=== PATIENT | male | born 1995 | race Caucasian/White ===

== ENCOUNTER 2018-04-15 00:57 | Emergency (ER) | payer MEDICAID, OTHER ==
[~2018-04-15] VITALS: Ht 175.3 cm; Wt 106.8 kg
[2018-04-15] MEDS ORDERED: MUCI600T31 PO (01:05)
[2018-04-15] MEDS ORDERED: ACETAMINOPHEN 325 MG TAB As Ordered ONE (01:14)
[2018-04-15] MEDS ORDERED: ACETAMINOPHEN 325 MG TAB PO ONE (01:30)
[2018-04-15] MEDS ORDERED: NS 1,000 ML IV ONE (01:45)
[2018-04-15 01:50] LABS: INFLUENZA A AMPLIFICATION NEGATIVE (NEGATIVE); INFLUENZA B AMPLIFICATION NEGATIVE (NEGATIVE)
[2018-04-15] MEDS ORDERED: ALBUTEROL SULFATE 2.5 MG/0.5 ML INH NEB SOLN NEB ONE (02:00)
[2018-04-15] MEDS ORDERED: METOCLOPRAMIDE 10 MG TAB PO ONE (02:00)
[2018-04-15] MEDS ORDERED: PROAAER10 INH (02:08)
[2018-04-15 02:39] VITALS: BP 124/78
--- NOTE | 2018-04-15 07:47 | REP ---
Clinical: Cough and fever . Comparison: 02/06/2007 . Technique: PA and lateral. Findings: The mediastinum and cardiac silhouette are normal. The lung thompson are clear and without acute consolidation, effusion, or pneumothorax. The skeletal structures are intact and normal. Impression: 1. No acute cardiopulmonary process. Electronically Signed by Jasmeet Pate MD 04/15/2018 07:38 A
== END 2018-04-15 02:41 | disposition home or self-care (01) ==
LOC: M ED 00:57
DX: B34.9 Viral infection, unspecified (principal); R50.9 Fever, unspecified; J45.909 Unspecified asthma, uncomplicated

== ENCOUNTER 2018-04-25 22:09 | Emergency (ER) | payer OTHER ==
[~2018-04-25] VITALS: Ht 172.7 cm; Wt 108.2 kg
[~2018-04-25 22:09] MED LIST: MUCI600T31 PO; PROAAER10 INH
[2018-04-25] MEDS ORDERED: ONDANSETRON 4MG/2ML VIAL (J2405) IV ONE (23:00)
[2018-04-25] MEDS ORDERED: KETOROLAC 30 MG/ML VIAL (J1885) IV ONE (23:00)
[2018-04-25] MEDS ORDERED: NS 500 ML IV ONE (23:00)
--- NOTE | 2018-04-25 23:55 | REPVR ---
EXAM: CT Abdomen and Pelvis Without Contrast EXAM DATE/TIME: 04/25/2018 10:51 PM CLINICAL HISTORY: 23 years old, male; Pain; Abdominal pain; Flank; Right; Additional info: Right flank pain TECHNIQUE: Axial computed tomography images of the abdomen and pelvis without contrast. All CT scans at this facility use at least one of these dose optimization techniques: automated exposure control; mA and/or kV adjustment per patient size (includes targeted exams where dose is matched to clinical indication); or iterative reconstruction. Coronal and sagittal reformatted images were created and reviewed. COMPARISON: No relevant prior studies available. FINDINGS: Lower thorax: Unremarkable. ABDOMEN: Liver: Unremarkable. Gallbladder and bile ducts: No radiodense gallstones. No biliary ductal dilatation. Pancreas: Unremarkable. Spleen: Unremarkable. Adrenals: Unremarkable. Kidneys and ureters: Mild right-sided hydroureteronephrosis and perinephric/periureteral stranding, secondary to a 2 mm right UVJ calculus (axial image 139 and coronal image 62). Nonobstructing bilateral renal calculi. Stomach and bowel: No bowel wall thickening. No obstruction. No pneumatosis. Appendix: Normal. PELVIS: Bladder: Unremarkable. Reproductive: Unremarkable. ABDOMEN and PELVIS: Intraperitoneal space: No free fluid. No organized fluid collection. No free air. Bones/joints: No acute osseous abnormality. Soft tissues: Small, fat-containing umbilical hernia. Vasculature: Unremarkable. No aneurysm. Lymph nodes: Small mesenteric lymph nodes, nonspecific in appearance. No pathologically enlarged lymph nodes. IMPRESSION: 1. Mild right-sided hydroureteronephrosis and perinephric/periureteral stranding, secondary to a 2 mm right UVJ calculus. 2. Additional findings, as above. Electronically signed by: Gokul Quintanilla On 04/25/2018 23:55:00 PM
[2018-04-26 00:23] LABS: BASO # 0.1 10^3/uL (0.0-0.2); BASO % 0.4 % (0.0-1.0); EOS # 0.1 10^3/uL (0.0-0.50); EOS % 0.4 % (0.0-3.0); HEMATOCRIT 40.1 % (42.0-52.0); HEMOGLOBIN 13.6 g/dl (13.5-17.5); LYMPH # 1.1 10^3/uL (1.5-6.5); LYMPH % 6.7 % (24.0-44.0); MEAN CORPUSCULAR HEMOGLOBIN 28.6 pg (27.0-33.0); MEAN CORPUSCULAR HGB CONC 33.9 g/dl (32.0-36.5); MEAN CORPUSCULAR VOLUME 84.4 fl (80.0-96.0); MONO # 0.5 10^3/uL (0.0-0.8); NEUTROPHILS # 15.1 10^3/uL (1.8-7.7); PLATELET COUNT, AUTOMATED 360 10^3/uL (150-450); RED BLOOD COUNT 4.75 10^6/uL (4.30-6.10)
[2018-04-26 00:37] LABS: ALBUMIN 3.9 GM/DL (3.2-5.2); ALT/SGPT 57 U/L (12-78); BILIRUBIN,DIRECT 0.1 MG/DL (0.0-0.2); BILIRUBIN,TOTAL 0.3 MG/DL (0.2-1.0); BLOOD UREA NITROGEN 9 MG/DL (7-18); CALCIUM LEVEL 8.5 MG/DL (8.5-10.1); CARBON DIOXIDE LEVEL 24 MEQ/L (21-32); CHLORIDE LEVEL 111 MEQ/L (98-107); CREATININE FOR GFR 1.03 MG/DL (0.70-1.30); GLOMERULAR FILTRATION RATE > 60.0 (>60); GLUCOSE, FASTING 116 MG/DL (70-100); LIPASE 148 U/L (73-393); POTASSIUM SERUM 4.2 MEQ/L (3.5-5.1); SODIUM LEVEL 142 MEQ/L (136-145); TOTAL PROTEIN 7.2 GM/DL (6.4-8.2)
[2018-04-26] MEDS ORDERED: ONDA4TAB6 PO (01:06)
[2018-04-26] MEDS ORDERED: ACET30TAB PO (01:06)
[2018-04-26] MEDS ORDERED: KETO10TAB PO (01:06)
[2018-04-26] MEDS ORDERED: FLOM0.4C39 PO (01:06)
[2018-04-26 01:19] VITALS: BP 140/82
[2018-04-26] MEDS ORDERED: NORCO 5/325MG TABLET (BULK FOR ED) PO ONE (01:30)
== END 2018-04-26 01:42 | disposition home or self-care (01) ==
LOC: M ED 22:09
DX: N20.1 Calculus of ureter (principal); R11.0 Nausea; J45.909 Unspecified asthma, uncomplicated; Z84.1 Family history of disorders of kidney and ureter
CPT/HCPCS: 74176; 80048; 80076; 81001; 83690; 85025; 96374; 96375; 99284; J1885; J2405

== ENCOUNTER 2018-10-11 18:37 | Emergency (ER) | payer OTHER ==
[~2018-10-11] VITALS: Ht 175.3 cm; Wt 102.3 kg
[2018-10-11 18:37] VITALS: BP 144/87
[~2018-10-11 18:37] MED LIST changes: +ACET-716 PO; +FLOM0.4C39 PO; +KETO10TAB PO; +ONDA4TAB6 PO
== END 2018-10-11 20:21 | disposition left against medical advice (07) ==
LOC: M ED 18:37
DX: Z53.21 Procedure and treatment not carried out due to patient leaving prior to being seen by health care provider (principal)

== ENCOUNTER → 2018-12-25 | Outpatient (REF) | payer OTHER | LOC: M LAB REF 11:01 | PROVIDERS: ATTEND Physician Assistant | DX: J02.9 Acute pharyngitis, unspecified (principal) ==

== ENCOUNTER 2019-01-14 20:24 | Emergency (ER) | payer OTHER ==
[~2019-01-14] VITALS: Ht 172.7 cm; Wt 106.8 kg
[2019-01-14 20:25] VITALS: BP 144/85
[2019-01-14] MEDS ORDERED: AUGMENTIN 875 MG TAB PO ONE (22:00)
[2019-01-14] MEDS ORDERED: AUGM875T28 PO (22:09)
== END 2019-01-14 22:23 | disposition home or self-care (01) ==
LOC: M ED 20:24
DX: J02.9 Acute pharyngitis, unspecified (principal); F17.200 Nicotine dependence, unspecified, uncomplicated; Z79.51 Long term (current) use of inhaled steroids

== ENCOUNTER 2019-01-19 02:26 | Emergency (ER) | payer OTHER ==
[~2019-01-19] VITALS: Ht 172.7 cm; Wt 104.5 kg
[~2019-01-19 02:26] MED LIST changes: +AUGM875T28 PO
[2019-01-19] MEDS ORDERED: KETO10TAB PO (03:27)
[2019-01-19] MEDS ORDERED: KETOROLAC 60 MG/2 ML VIAL (J1885) IM ONE (03:30)
[2019-01-19 03:32] VITALS: BP 138/84
== END 2019-01-19 04:23 | disposition home or self-care (01) ==
LOC: M ED 02:26
DX: K08.9 Disorder of teeth and supporting structures, unspecified (principal); J45.909 Unspecified asthma, uncomplicated
CPT/HCPCS: 96372; 99283; J1885

== ENCOUNTER → 2022-08-21 | Outpatient (REF) | payer OTHER | LOC: M LAB REF 16:14 | PROVIDERS: ATTEND Physician Assistant | DX: J02.9 Acute pharyngitis, unspecified (principal) ==

== ENCOUNTER → 2022-10-10 | Outpatient (REF) | payer OTHER, MEDICAID | LOC: M LAB REF 17:42 | PROVIDERS: ATTEND Physician Assistant Medical | DX: B34.9 Viral infection, unspecified (principal) ==

== ENCOUNTER 2023-08-08 17:17 | Emergency (ER) | payer MEDICAID, OTHER ==
[~2023-08-08] VITALS: Ht 177.8 cm; Wt 72.6 kg
[~2023-08-08 17:17] MED LIST changes: +ONDA-282 PO; -ONDA4TAB6 PO
[2023-08-08 18:06] LABS: BASO # 0.1 10^3/uL (0.0-0.2); BASO % 0.4 % (0.0-1.0); EOS # 0.1 10^3/uL (0.0-0.5); EOS % 0.4 % (0.0-3.0); HEMATOCRIT 41.2 % (42.0-52.0); HEMOGLOBIN 14.3 g/dl (13.5-17.5); LYMPH # 0.7 10^3/uL (1.5-5.0); LYMPH % 4.9 % (24.0-44.0); MEAN CORPUSCULAR HEMOGLOBIN 30.8 pg (27.0-33.0); MEAN CORPUSCULAR HGB CONC 34.7 g/dl (32.0-36.5); MEAN CORPUSCULAR VOLUME 88.6 fl (80.0-96.0); MONO # 0.9 10^3/uL (0.0-0.8); MONO % 6.1 % (2.0-8.0); NEUTROPHILS # 12.3 10^3/uL (1.5-8.5); NEUTROPHILS % 87.9 % (36.0-66.0); PLATELET COUNT, AUTOMATED 312 10^3/uL (150-450); RED BLOOD COUNT 4.65 10^6/uL (4.30-6.10)
[2023-08-08 18:26] LABS: LIPASE 42 U/L (12-53)
[2023-08-08 18:28] LABS: ALBUMIN 4.5 G/DL (3.2-5.2); ALKALINE PHOSPHATASE 60 U/L (46-116); ALT/SGPT 15 U/L (7.0-40); AST/SGOT < 8 U/L (<34); BILIRUBIN,DIRECT 0.4 MG/DL (<0.4); TOTAL PROTEIN 7.5 G/DL (5.7-8.2)
[2023-08-08] MEDS: KETOROLAC 30 MG/ML 1ML VIAL IV ONE (19:41)
[2023-08-08] MEDS: NS 1,000 ML IV ONE (19:42)
[2023-08-08 22:00] VITALS: BP 127/59; TEMP 97.6; O2SAT 97
[2023-08-09] MEDS ORDERED: FLOM0.4C39 PO (00:05)
== END 2023-08-09 01:03 | disposition home or self-care (01) ==
LOC: M ED 17:17
DX: N21.1 Calculus in urethra (principal); J45.909 Unspecified asthma, uncomplicated; Z87.442 Personal history of urinary calculi; F17.290 Nicotine dependence, other tobacco product, uncomplicated
CPT/HCPCS: 74176; 80047; 80076; 81001; 83690; 85025; 96361; 96374; 99284; J1885